=== PATIENT | male | born 1995 | race Caucasian/White ===

== ENCOUNTER 2020-07-09 06:08 | Emergency (ER) | payer BC, SELFPAY ==
--- NOTE | ~2020-07-09 | US_ITS ---
EXAMINATION: US venous doppler [facility] DATE: 07/09/2020 07:47 INDICATION: Lower limb paresthesias and purplish erythematous discoloration. TECHNIQUE: Grayscale ultrasound images without and with compression and Doppler ultrasound images of the bilateral lower extremity veins were obtained. COMPARISON: None. FINDINGS: The visualized portions of right common femoral vein, profunda (deep) femoral vein, femoral vein, pop liteal vein, posterior tibial veins, peroneal veins, gastrocnemius vein and greater saphenous vein ou tflow are patent. The visualized portions of left common femoral vein, profunda femoral vein, femoral vein, popliteal v ein, posterior tibial veins, peroneal veins, gastrocnemius vein and greater saphenous vein outflow ar e patent. IMPRESSION: 1. No deep venous thrombosis in either lower limb. Reviewed, dictated and finalized at location A.
--- NOTE | ~2020-07-09 | US_ITS ---
EXAMINATION: US arterial ankle brachial ind DATE: 07/09/2020 07:47 INDICATION: Paresthesias with numbness and tingling to the bilateral lower limbs as well as purplish erythematous discoloration. TECHNIQUE: Segmental pressures and plethysmographic and Doppler waveforms of the brachial and lower e xtremity arteries were obtained. COMPARISON: None. FINDINGS: Right and left brachial artery pressures of 120 mm Hg and 135 mm Hg, respectively, are concordant (no rmal difference <= 30 mmHg). The right ankle-brachial index (FAVIAN) is 1.19 (normal >= 0.9-1.0). The right great toe-brachial index (TBI) is 0.91 (normal >= 0.65). Arterial Doppler waveforms are triphasic at the right posterior tibia l and biphasic at the right dorsalis pedis arteries, both with brisk systolic upstrokes. The left FAVIAN is 1.24. The left TBI is 1.02. Arterial Doppler waveforms are triphasic with brisk systo lic upstrokes at both the left posterior tibial and dorsalis pedis arteries. IMPRESSION: 1. No significant arterial occlusive disease to either lower limb with normal bilateral ABIs and TBIs . Reviewed, dictated and finalized at location A. IMPRESSION: 1. No significant arterial occlusive disease to either lower limb with normal b ilateral ABIs and TBIs.
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
[2020-07-09 06:14] VITALS: BP 157/96; PULSE 78; RESP 20; TEMP 36.9; O2SAT 100
--- NOTE | 2020-07-09 06:33 | PC.NURSE ---
pedal pulses present in bilateral feet.
[2020-07-09 06:40] LABS: Basophils Percent Auto 0.5 % (0.2-1.2); Eosinophils Absolute Auto 0.1 K/mm3 (0-0.3); Eosinophils Percent Auto 1.5 % (0-4.4); Hematocrit 49.6 % (42.0-52.0); Hemoglobin 17.6 g/dL (14.0-18.0); Immature Granulocyte Absolute 0.02 K/mm3 (0.00-0.031); Immature Granulocyte Percent A 0.2 % (0-0.5); Lymphocytes Absolute Auto 3.41 K/mm3 (0.9-3.2); Mean Corpuscular HGB Conc 35.5 g/dl (32-36); Mean Corpuscular Hemoglobin 31.4 pg (26-34); Mean Corpuscular Volume 88.6 fl (80-100); Mean Platelet Volume 10.4 fl (7.4-10.4); Monocytes Absolute Auto 0.6 K/mm3 (0.1-0.6); Monocytes Percent Auto 6.7 % (2.6-8.5); Neutrophils Absolute Auto 4.4 K/mm3 (1.3-6.7); Neutrophils Percent Auto 51.1 % (45.5-73.1); Platelet Count Result 223 k/mm3 (150-375); White Blood Count 8.5 K/mm3 (4.5-10.0)
[2020-07-09 06:47] LABS: Anion Gap 11 mmol/L (8-16); Blood Urea Nitrogen 18 mg/dL (9-20); Calcium 10.3 mg/dL (8.4-10.2); Carbon Dioxide 28 mmol/L (22-30); Chloride 101 mmol/L (98-107); Estimated CRCL calculation 142 ml/min; Estimated Glomerular Filt Rate > 60; Glucose 126 mg/dL (75-110); Potassium 3.6 mmol/L (3.4-5.0); Sodium 140 mmol/L (137-145)
[2020-07-09 06:57] LABS: INR 0.9; Partial Thromboplastin Time 26.5 SECONDS (22.3-36.8); Prothrombin Time 12.4 Seconds (11.1-14.7)
--- NOTE | 2020-07-09 07:10 | PC.NURSE ---
Pt off floor to imaging via cart
--- NOTE | 2020-07-09 07:45 | PC.NURSE ---
Pt sitting up on cart, states he woke up with bilat numbness and tingling to both legs , denies trauma, states he works long hours on his feet. Both ankles have varicose-vein appearing martell, no open wounds. Currently denies pain
[2020-07-09 08:12] VITALS: BP 133/80; PULSE 105; RESP 17; O2SAT 100
== END 2020-07-09 08:26 | disposition home or self-care (01) ==
PROVIDERS: Emergency Provider Emergency Medicine
DX: R20.2 Paresthesia of skin (principal); F17.210 Nicotine dependence, cigarettes, uncomplicated
CPT/HCPCS: 36415; 80048; 85025; 85610; 85730; 93922; 93970; 99284

== ENCOUNTER 2020-07-17 11:56 | Emergency (ER) | payer BC, SELFPAY ==
[2020-07-17 12:15] VITALS: BP 108/78; PULSE 106; RESP 17; TEMP 36.4; O2SAT 100
--- NOTE | 2020-07-17 13:40 | ED.GENADULT ---
HPI - General Adult General Chief complaint: Skin/Abscess/Foreign Body Stated complaint: my skin is turning colors Time Seen by Provider: 07/17/20 12:47 Source: patient and RN notes reviewed Mode of arrival: ambulatory Limitations: no limitations History of Present Illness HPI narrative: Patient is a 24-year-old male who presents to emergency department for evaluation of multiple complaints patient notes that he has had longstanding anxiety typically takes his grandmothers Xanax and also obtains it from off the streets has a history of IV fentanyl abuse which she has quit doing now uses IV methamphetamine has not used in over a week patient does not have a primary care patient notes that he has discoloration of various places on his skin gets chest tightness and butterflies in his stomach denies vomiting diarrhea URI symptoms notes that the symptoms have been present off and on for years Related Data Allergies Allergy/AdvReac Type Severity Reaction Status Date / Time No Known Allergies Allergy Verified 07/17/20 12:21 Review of Systems Review of Systems: All systems reviewed & are unremarkable except as noted in HPI and below PMFSH Past Medical History Medical History (Updated 07/17/20 @ 13:43 by Sreedhar Mayorga PA-C) Anxiety Social History Social History (Updated 07/17/20 @ 13:41 by Sreedhar Mayorga PA-C) Smoking status: Current every day smoker Tobacco type: cigarettes and e-cigarettes/vaping Alcohol intake: current Substance use: current Substance use type: marijuana, amphetamines and IV drugs Gender identity (if verbalized by the patient): Male Exam Narrative: Exam Narrative: GENERAL: Well-appearing, well-nourished, and in no acute distress. HEAD: Normocephalic, atraumatic. EYES: PERRLA and EOMI. ENT: Nares clear, no rhinorrhea or epistaxis. Mucous membranes moist. Oropharynx without tonsillar hypertrophy exudate or other lesions. NECK: Supple. No adenopathy or masses. No carotid bruits or JVD CHEST: Clear to auscultation. No respiratory distress. No wheezes rales or rhonchi HEART: Regular rate and rhythm. No murmur heard. Normal peripheral pulses. ABDOMEN: Soft, nontender, nondistended EXTREMITIES: Normal range of motion. No edema. SKIN: Warm, dry, no rash. No identifiable rashes wounds or sores NEURO: No focal deficits. Alert and oriented x3. Cranial nerves II through XII grossly intact PSYCH: Normal mood and affect. Course Course Emergency Course: Patient in the room evaluated hemodynamically stable afebrile nontoxic-appearing given resources for follow-up with primary care patient agrees with this plan ABCs and vital signs intact and stable Vital Signs Vital signs: Vital Signs Temperature 97.6 F 07/17/20 12:15 Pulse Rate 106 H 07/17/20 12:15 Respiratory Rate 17 07/17/20 12:15 Blood Pressure 108/78 07/17/20 12:15 Pulse Oximetry 100 07/17/20 12:15 Temperature 97.6 F 07/17/20 12:15 Pulse Rate 106 H 07/17/20 12:15 Respiratory Rate 17 07/17/20 12:15 Blood Pressure 108/78 07/17/20 12:15 Pulse Oximetry 100 07/17/20 12:15 Medical Decision Making MDM Narrative Medical decision making narrative: Patients injury or pain is consistent with musculoskeletal etiology. No signs of neurological or vascular compromise on exam. Compartments and tisues are soft without signs of compartment syndrome. Pain is felt appropriate for further evaluation on an outpatient basis. Vital Signs Vital Signs: Vital Signs Temperature 97.6 F 07/17/20 12:15 Pulse Rate 106 H 07/17/20 12:15 Respiratory Rate 17 07/17/20 12:15 Blood Pressure 108/78 07/17/20 12:15 Pulse Oximetry 100 07/17/20 12:15 Temperature 97.6 F 07/17/20 12:15 Pulse Rate 106 H 07/17/20 12:15 Respiratory Rate 17 07/17/20 12:15 Blood Pressure 108/78 07/17/20 12:15 Pulse Oximetry 100 07/17/20 12:15 Discharge Plan Discharge Clinical Impression: Anxiety Patient Dispos
== END 2020-07-17 13:58 | disposition home or self-care (01) ==
PROVIDERS: Emergency Provider Emergency Medicine; PCP Emergency Medicine
DX: F41.9 Anxiety disorder, unspecified (principal); F17.200 Nicotine dependence, unspecified, uncomplicated
CPT/HCPCS: 99281

== ENCOUNTER 2021-04-17 21:38 | Emergency (ER) | payer BC, SELFPAY ==
--- NOTE | ~2021-04-17 | XR_ITS ---
EXAMINATION: XR chest 1V portable EXAM DATE: 04/17/2021 22:05 INDICATION: Respiratory bowel leak, shallow breathing. TECHNIQUE: Portable AP frontal chest x-ray was obtained. Comparison is made to prior examination from 10/29/2018. FINDINGS: The lungs are clear. There are no pleural effusions. The cardiomediastinal silhouette is within normal limits. There is no pneumothorax suspected. The bones and soft tissues are unremarkab le. IMPRESSION: Normal chest x-ray exam. Reviewed, dictated and finalized at location G. [employer] IMPRESSION: Normal chest x-ray exam.
[2021-04-17 21:39] VITALS: BP 168/144; PULSE 141; RESP 22; TEMP 36.7; O2SAT 100
--- NOTE | 2021-04-17 21:55 | ECG_ITS ---
Measurements Intervals [place] Rate: 113 P: 70 WA: 191 QRS: 58 QRSD: 83 T: 43 QT: 335 QTc: 460 Interpretive Statements SINUS TACHYCARDIA POSSIBLE LEFT ATRIAL ENLARGEMENT ABNORMAL ECG Electronically Signed On 04-18-2021 7:56:06 [employer] by Kevin Crowell D.O.
[2021-04-17] MEDS: SODIUM CHLORIDE 0.9% IV 1,000 ML 999 ML IV CONT ×2 (22:15→23:48)
[2021-04-17 22:34] LABS: Basophils Percent Auto 0.2 % (0.2-1.2); Eosinophils Percent Auto 0.1 % (0-4.4); Hematocrit 43.4 % (42.0-52.0); Hemoglobin 14.8 g/dL (14.0-18.0); Immature Granulocyte Absolute 0.09 K/mm3 (0.00-0.031); Immature Granulocyte Percent A 0.7 % (0-0.5); Lymphocytes Absolute Auto 0.89 K/mm3 (0.9-3.2); Lymphocytes Percent Auto 7.4 % (18.3-44.2); Mean Corpuscular HGB Conc 34.1 g/dl (32-36); Mean Corpuscular Hemoglobin 31.6 pg (26-34); Mean Corpuscular Volume 92.5 fl (80-100); Mean Platelet Volume 10.7 fl (7.4-10.4); Monocytes Absolute Auto 0.5 K/mm3 (0.1-0.6); Monocytes Percent Auto 3.8 % (2.6-8.5); Neutrophils Absolute Auto 10.5 K/mm3 (1.3-6.7); Neutrophils Percent Auto 87.8 % (45.5-73.1); Platelet Count Result 224 k/mm3 (150-375); Red Blood Count 4.69 M/mm3 (4.6-6.20)
[2021-04-17 22:47] LABS: Acetaminophen < 10 ug/mL (10-30); Salicylate < 1.0 mg/dL (2-20)
[2021-04-17] MEDS: PROMETHAZINE HCL 25 MG/ML AMPUL 12.5 MG IV PUSH (22:56)
[2021-04-17 23:04] VITALS: RESP 12
[2021-04-17 23:13] LABS: Add Urine Microscopic? YES; Appearance Urine Clear (Clear); Bilirubin Urine Negative (Negative); Blood Urine Negative (Negative); Color Urine Yellow (Yellow); Glucose Urine UA 2+ mg/dL (Negative); Ketones Urine Trace mg/dL (Negative); Leukocyte Esterase Ur Negative LEU/UL (Negative); Mucus Urine Rare /lpf; Nitrate Urine Negative (Negative); Protein Urine 1+ mg/dL (Negative); RBC Urine 51-75 /hpf (0-2); Specific Grav Ur 1.017 (1.001-1.035); Squamous Epithelial Cell Urine Rare /hpf (Few); WBC Urine 0-3 /hpf
[2021-04-17 23:15] LABS: Alanine Aminotransferase 49 U/L (4-50); Albumin Level 4.3 g/dL (3.5-5.1); Alkaline Phosphatase 92 U/L (38-126); Anion Gap 13 mmol/L (8-16); Aspartate Amino Transferase 48 U/L (17-59); Bilirubin,Total 0.4 mg/dL (0.2-1.3); Blood Urea Nitrogen 11 mg/dL (9-20); Calcium 8.9 mg/dL (8.4-10.2); Carbon Dioxide 28 mmol/L (22-30); Chloride 98 mmol/L (98-107); Estimated CRCL calculation 93 ml/min; Estimated Glomerular Filt Rate > 60; Glucose 226 mg/dL (65-110); Potassium 5.4 mmol/L (3.4-5.0); Sodium 139 mmol/L (137-145)
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
[2021-04-17 23:18] LABS: Thyroid Stimulating Hormone 0.995 uIU/mL (0.465-4.680)
[2021-04-17 23:30] VITALS: BP 128/103; PULSE 99; RESP 14; O2SAT 99
[2021-04-17 23:42] LABS: Amphetamine Screen Urine Negative (Negative); Barbiturate Screen Urine Negative (Negative); Benzodiazepines Screen Urine Negative (Negative); Cannabinoid Screen Urine Positive (Negative); Cocaine Screen Urine Negative (Negative); Methadone Screen Urine Negative (Negative); Opiate Screen Urine Negative (Negative); Phencyclidine Screen Urine Negative (Negative)
[2021-04-18 01:12] VITALS: BP 121/84; PULSE 92; PULSE 98; RESP 14; TEMP 36.6; TEMP 36.8; O2SAT 98; O2SAT 99
== END 2021-04-18 01:13 | disposition home or self-care (01) ==
PROVIDERS: Emergency Provider Emergency Medicine; PCP Emergency Medicine
DX: T40.411A Poisoning by fentanyl or fentanyl analogs, accidental (unintentional), initial encounter (principal); R00.0 Tachycardia, unspecified; F41.9 Anxiety disorder, unspecified; F90.9 Attention-deficit hyperactivity disorder, unspecified type
CPT/HCPCS: 36415; 71045; 80053; 80307; 81001; 84443; 85025; 93005; 96361; 96374; 99284; J2550; J7030

== ENCOUNTER 2021-08-14 16:50 | Observation (INO) | payer BC, SELFPAY ==
--- NOTE | ~2021-08-14 | CT_ITS ---
EXAMINATION: CT diagnostic chest wo con DATE: 08/15/2021 10:10 INDICATION: IVDU/Splenomegaly TECHNIQUE: Computed tomography (CT) of the chest was performed without intravenous contrast. Addition al 3D reconstructions utilizing coronal maximum intensity projection (MIP) were performed. Automated exposure control and iterative reconstruction technique were employed. The dose-length product was 16 0.50 mGy-cm. COMPARISON: None FINDINGS: Suture line and mild associated scarring at the apical segment of the left upper lobe. Minimal depend ent atelectasis in the bilateral lower lobes. No pneumonia, pulmonary edema, pulmonary nodules or ple ural effusion. Heart size is normal. No pericardial effusion. Thoracic aorta is normal in caliber. No pathologically enlarged thoracic lymphadenopathy. Spleen is only partially visualized but does appea r mildly enlarged measuring up to 13.2 cm in maximal AP length. Bones are unremarkable. IMPRESSION: 1. No acute cardiopulmonary disease. 2. Nonspecific mild splenomegaly. Reviewed, dictated and finalized at location A.
--- NOTE | ~2021-08-14 | CT_ITS ---
EXAMINATION: CT abdomen pelvis wo con DATE: 08/14/2021 20:01 INDICATION: Abdominal pain, hematuria TECHNIQUE: Computed tomography (CT) of the abdomen and pelvis was performed without intravenous contr ast. Automated exposure control and iterative reconstruction technique were employed. Exam dose: 285 .52 mGy-cm total exam DLP. COMPARISON: 10/29/2018 CT abdomen pelvis FINDINGS: The lung bases are clear. Normal heart size. No pericardial or pleural effusion. The spleen measures approximately 15 cm vertical dimension, consistent with splenomegaly. No hepatic, splenic, pancreatic, adrenal or renal space-occupying mass lesion is evident on this limited noncont rast examination. The gallbladder is present. No bile duct or pancreatic duct dilatation. Normal caliber of the abdominal aorta. No intraperitoneal or retroperitoneal or pelvic mass lesion or adenopathy or ascites is noted. The urinary bladder is evacuated. No evidence of appendicitis. No bowel obstruction is noted. There is a prominent amount of fecal mate rial within the colon. No intraperitoneal free air. Included skeletal structures are unremarkable. IMPRESSION: Splenomegaly Reviewed, dictated and finalized at Location A. Reviewed, dictated and finalized at location A. IMPRESSION: Splenomegaly
[2021-08-14 17:02] VITALS: BP 119/67; PULSE 85; RESP 18; TEMP 37.2; O2SAT 100
--- NOTE | 2021-08-14 18:12 | ED.GENADULT ---
HPI - General Adult General Chief complaint: Urogenital-Male Stated complaint: HEMATURIA X3D, WEIGHT LOSS Time Seen by Provider: 08/14/21 18:04 History of Present Illness HPI narrative: 22-year-old male presents emergency room states that over the last several days his urine has been extremely dark. He states he thought that it would clear out but is not clearing up. He also has some dysuria as well as urinary frequency. He has had an STD with chlamydia in the past but did not having any discharge from his penis at this time. He also states that he has had no appetite and has lost about 30 pounds over the last several weeks. Denies any chills or fevers. No cough or congestion. Only medical history is had his he had surgery on his lung secondary to spontaneous pneumothorax. Related Data Home Medications Medication Instructions Recorded Confirmed No Home Medications 08/14/21 08/14/21 Allergies Allergy/AdvReac Type Severity Reaction Status Date / Time No Known Allergies Allergy Verified 08/14/21 19:30 Review of Systems Review of Systems: CONSTITUTIONAL: Denies fever, chills, or sweats. Weight loss EYES: Denies visual changes, redness, or discharge. ENT: Denies rhinorrhea, congestion, sore throat, or otalgia. CARDIOVASCULAR: Denies chest pain, palpitations, or edema. RESPIRATORY: Denies cough or dyspnea. GASTROINTESTINAL: Denies abdominal pain, nausea, vomiting, or diarrhea. GENITOURINARY: Having dark urine with dysuria and urinary frequency SKIN: Denies rash or itching. MUSCULOSKELETAL: Denies back pain, joint pain, or myalgia. NEUROLOGIC: Denies headache, numbness, or weakness. PSYCHIATRIC: Denies anxiety or depression. PMFSH Past Medical History Medical History (Updated 08/14/21 @ 21:11 by Dave Velasquez DO) ADHD Anxiety Surgical History Surgical History (Updated 08/14/21 @ 18:14 by Dave Velasquez DO) History of lung surgery Social History Social History Smoking status: Current every day smoker Tobacco type: cigarettes and e-cigarettes/vaping Alcohol intake: current Substance use: current Substance use type: marijuana, amphetamines and IV drugs Gender identity (if verbalized by the patient): Male Exam Narrative: APPEARANCE: Well appearing, no pain or distress, well-nourished. Head normocephalic and atraumatic. EYES: PERRLA/EOMI, conjunctivae very clear. NOSE: Normal with no drainage EARS:TMS clear Lili Hall, with good light reflex. THROAT: Pharynx clear, no exudate. NECK: Supple. No adenopathy, no masses. RESPIRATORY: Airway patent, respirations nonlabored. Clear to auscultation bilaterally, no rales, rhonchi, wheezing. CARDIOVASCULAR: Regular rate and rhythm without murmurs, rubs, or gallops. ABDOMINAL: Suprapubic tenderness to palpation. No rebound rigidity guarding. Some tenderness noted to the left upper and mid quadrants Musculoskeletal: Moves all extremities. Strength/ROM intact, No edema, No calf tenderness. NEURO: Alert. Cranial nerves II through XII intact. Normal gait. Good coordination. Nonfocal examination. SKIN:: Warm, dry. Normal Color PSYCHIATRIC: Normal affect/mood, normal interaction Course Vital Signs Vital signs: Vital Signs Temperature 98.9 F 08/14/21 17:02 Pulse Rate 85 08/14/21 17:02 Respiratory Rate 18 08/14/21 17:02 Blood Pressure 119/67 08/14/21 17:02 Pulse Oximetry 100 08/14/21 17:02 Oxygen Delivery Room Air 08/14/21 17:02 Temperature 98.9 F 08/14/21 17:02 Pulse Rate 80 08/14/21 19:29 Respiratory Rate 16 08/14/21 19:29 Blood Pressure 108/79 08/14/21 19:29 Pulse Oximetry 99 08/14/21 19:29 Oxygen Delivery Room Air 08/14/21 17:02 Medical Decision Making [facility] Narrative Medical decision making narrative: There is no signs of a urinary tract infection but the patient is spilling bilirubin in his urine. However on his chemistry panel his liver e
[2021-08-14 18:51] LABS: Basophils Percent Auto 0.6 % (0.2-1.2); Eosinophils Absolute Auto 0.1 K/mm3 (0-0.3); Hematocrit 37.7 % (42.0-52.0); Hemoglobin 12.5 g/dL (14.0-18.0); Immature Granulocyte Absolute 0.02 K/mm3 (0.00-0.031); Immature Granulocyte Percent A 0.3 % (0-0.5); Lymphocytes Absolute Auto 1.98 K/mm3 (0.9-3.2); Lymphocytes Percent Auto 30.4 % (18.3-44.2); Mean Corpuscular HGB Conc 33.2 g/dl (32-36); Mean Corpuscular Hemoglobin 29.6 pg (26-34); Mean Corpuscular Volume 89.3 fl (80-100); Mean Platelet Volume 10.1 fl (7.4-10.4); Monocytes Absolute Auto 0.6 K/mm3 (0.1-0.6); Monocytes Percent Auto 9.4 % (2.6-8.5); Neutrophils Absolute Auto 3.7 K/mm3 (1.3-6.7); Neutrophils Percent Auto 57.3 % (45.5-73.1); Platelet Count Result 229 k/mm3 (150-375); Red Blood Count 4.22 M/mm3 (4.6-6.20); Red Cell Distribution Width 11.9 % (11.5-14.5); White Blood Count 6.5 K/mm3 (4.5-10.0)
[2021-08-14 19:01] LABS: Alanine Aminotransferase 21 U/L (6-50); Albumin Level 4.2 g/dL (3.5-5.1); Alkaline Phosphatase 95 U/L (38-126); Anion Gap 9 mmol/L (8-16); Aspartate Amino Transferase 19 U/L (17-59); Bilirubin,Total 0.3 mg/dL (0.2-1.3); Blood Urea Nitrogen 17 mg/dL (9-20); Calcium 8.8 mg/dL (8.4-10.2); Carbon Dioxide 28 mmol/L (22-30); Chloride 105 mmol/L (98-107); Estimated CRCL calculation 142 ml/min; Estimated Glomerular Filt Rate > 60; Glucose 106 mg/dL (65-110); Potassium 4.1 mmol/L (3.4-5.0); Sodium 142 mmol/L (137-145)
[2021-08-14 19:29] VITALS: BP 108/79; PULSE 80; RESP 16; O2SAT 99
[2021-08-14 19:36] LABS: Appearance Urine Clear (Clear); Bilirubin Urine 2+ (Negative); Blood Urine Negative (Negative); Color Urine Yellow (Yellow); Glucose Urine UA Negative (Negative); Ketones Urine Negative (Negative); Leukocyte Esterase Ur Negative LEU/UL (Negative); Nitrate Urine Negative (Negative); Protein Urine Trace mg/dL (Negative); Specific Grav Ur >= 1.030 (1.001-1.035)
[2021-08-14 19:49] LABS: Add Urine Microscopic? YES; Calcium Oxalate Crystals Urine Present /hpf; Mucus Urine Heavy /lpf; Squamous Epithelial Cell Urine Rare /hpf (Few); WBC Urine 0-3 /hpf
--- NOTE | 2021-08-14 21:03 | PM.IMHP ---
H&P: HPI History of Present Illness Date/Time: 08/14/21 21:03 Chief Complaint: Urine discoloration Narrative: This is a 25-year-old male with past medical history significant for IVDU, amphetamine, fentanyl, tobacco dependence, 1 pack a day, alcohol dependence patient used to drink up to a pt a day of vocal but has been sober. Patient presents to the emergency room due to dark discoloration and weight loss of roughly 30 lb in the last 6 months or so unintentional. Patient did IV drugs 2 days prior to presentation to emergency room. Patient denies any nausea, vomiting, cough, sputum production, diarrhea, calves pain, no shortness of breath, no chest pain, no palpitations. Preliminary workup was significant for CT of abdomen and pelvis with enlarged spleen. Patient has been admitted for further evaluation management and treatment. Review of Systems Review of Systems: Urine discoloration, weight loss. Constitutional: Constitutional: Denies chills, Denies fever(s), Denies malaise, Denies night sweats and Reports weight loss Eyes: Eyes: Denies change in vision ENT: Denies dysphagia, Denies vertigo, Denies dizziness, Denies odynophagia and Denies disequilibrium Cardiovascular: Cardiovascular: Denies chest pain, Denies syncope, Denies lightheadedness, Denies radiating jaw, neck or arm pain, Denies palpitations, Denies dyspnea on exertion and Denies paroxysmal nocturnal dyspnea Respiratory: Respiratory: Denies chest congestion, Denies cough, Denies excessive phlegm production, Denies dyspnea and Denies wheezing Gastrointestinal: Gastrointestinal: Denies abdominal pain, Denies dyspepsia, Denies heartburn, Denies diarrhea, Denies nausea and Denies vomiting Genitourinary: Genitourinary: Denies genital lesions, Reports dysuria, Denies flank pain and Reports other (Dark discoloration of urine) Musculoskeletal: Musculoskeletal: Denies back pain, Denies myalgias, Denies arthralgias and Denies joint swelling Integumentary/Breasts: Skin/Breast: Denies rash Neurologic: Denies focal weakness and Denies Sensory deficit (Neuro) Psychiatric: Psychiatric: Reports no additional psychiatric complaints and Reports as per HPI Endocrine: Endocrine: Denies cold intolerance, Denies fatigue, Denies flushing, Denies heat intolerance, Denies polyphagia, Denies polydipsia and Denies palpitations Hematologic/Lymphatic: Hematologic/Lymphatic: Reports no additional hematologic/lymphatic complaints and Reports as per HPI Allergic/Immunologic: Allergic/Immunologic: Reports no additional allergic/immunologic complaints [facility] Past Medical History Medical History (Updated 08/15/21 @ 15:10 by Richard Claudio MD) ADHD Anxiety Surgical History Surgical History (Updated 08/15/21 @ 15:10 by Richard Claudio MD) History of lung surgery Family History Family History (Updated 08/14/21 @ 23:27 by Angelica Bowden RN) Grandparent Diabetes mellitus Blind Cerebrovascular accident Hx of heart surgery Father History of lung surgery Social History Social History Smoking packs per day: 0.5 Smoking cigarettes per day: 10.0 Years smoked: 10 Smoking pack-years: 5.00 Smoking status: Current every day smoker Tobacco type: cigarettes Alcohol intake: former Substance use: former Substance use type: marijuana Other substance usage details: pt states he dabbles in other stuff Gender identity (if verbalized by the patient): Male Spiritual care concerns: No Meds Home Medications and Allergies Home Medications Medication Instructions Recorded Confirmed Type No Home Medications 08/14/21 08/14/21 History Allergies Allergy/AdvReac Type Severity Reaction Status Date / Time No Known Allergies Allergy Verified 08/14/21 19:30 Vital Signs Vital Signs - 24 hr 08/14/21 17:02 08/14/21 19:29 Temperature 98.9 F Pulse Rate 85 80 Respiratory Rate 18 16 Blood Pr
--- NOTE | 2021-08-14 23:24 | ADMGEN ---
This patient, Philip Ramos, was admitted to 3 [facility] Surg Room 328-01. Patient/family oriented to hospital policies and general routines including ID bracelet, bed and alarms, visiting hours, pain management, procedures, bathroom and other care routines, personal items, smoking policy, room service/diet, and visiting hours. Information on how to activate the Rapid Response Team has been discussed. Patient/Family are encouraged to report perceived risks to care and to ask questions if they do not understand what they are told or what they should do.
[2021-08-14 23:25] VITALS: BP 111/69; PULSE 67; RESP 16; TEMP 36.3; O2SAT 99
--- NOTE | 2021-08-15 | ECHO_ITS ---
Patient Info Name: Philip Ramos Age: 25 years : 1995 Gender: Male Ht: 72 in Wt: 156 lbs BSA: 1.89 m2 HR: 65 bpm BP: 117 / 66 mmHg Technical Quality: Good Exam Date: 08/15/2021 1:04 PM Exam Location: [facility] Pulmonary Exam Room: [facility] Patient Status: Outpatient Admit Date: 08/14/2021 Staff Ordering Physician: Andrzej Malcolm MD Charging Machine Operator: Kristie Tavarez RDCS Attending Provider: Andrzej Malcolm MD Referring Physician: Gold REVELES; Exam Type: CA echo doppler color flow Study Info Indications - IVDU Complete two-dimensional, color flow and Doppler transthoracic echocardiogram is performed. Summary 1. Complete two-dimensional, color flow and Doppler transthoracic echocardiogram is performed. 2. Left ventricular chamber dimension is normal. 3. Left ventricular systolic function is normal, estimated at 60-65%. 4. The left ventricular diastolic function is normal. 5. E/e' 5 is not elevated. 6. Left atrial chamber dimension is mildly enlarged. 7. Right atrial chamber dimension is mildly enlarged. 8. There is trace mitral valve regurgitation. 9. There is trace tricuspid valve regurgitation. 10. No pulmonary hypertension, estimated pulmonary arterial systolic pressure is 21 mmHg. Left Ventricle E/e' 5 is not elevated. Left ventricular chamber dimension is normal. Left ventricular systolic function is normal, estimated at 60-65%. The left ventricular diastolic function is normal. Right Ventricle Right ventricular chamber dimension is normal. Right ventricular systolic function is normal. Left Atria Left atrial chamber dimension is mildly enlarged. Right Atria Right atrial chamber dimension is mildly enlarged. Aortic Valve The aortic valve is trileaflet. There is no aortic valve stenosis. There is no aortic valve regurgitation. No aortic valve vegetation visualized. Pulmonic Valve There is no pulmonic regurgitation. Mitral Valve There is no mitral valve stenosis. There is trace mitral valve regurgitation. No mitral valve vegetation visualized. Tricuspid Valve There is trace tricuspid valve regurgitation. No pulmonary hypertension, estimated pulmonary arterial systolic pressure is 21 mmHg. No tricuspid valve vegetation visualized. Pericardium/Pleural There is no pericardial effusion. Inferior Vena Cava Normal inferior vena cava with >50% collapse upon inspiration consistent with normal right atrial pressure, 5 mmHg. Aorta The aortic root size at the sinus of Valsalva is normal. Left Ventricular Outflow Tract Name Value Normal LVOT 2D LVOT Diameter 2.1 cm LVOT Doppler LVOT Peak Gradient 3 mmHg LVOT Mean Gradient 2 mmHg LVOT VTI 18 cm LVOT VTI/AV VTI Ratio 0.8 LVOT Stroke Volume 63 ml LVOT CO 13.5 l/min LVOT CI 7.2 l/min/m2 Pulmonic Valve Name
[2021-08-15 05:29] VITALS: BP 117/66; PULSE 78; RESP 16; TEMP 36.1; O2SAT 100
[2021-08-15 06:08] LABS: Basophils Percent Auto 0.6 % (0.2-1.2); Eosinophils Absolute Auto 0.2 K/mm3 (0-0.3); Eosinophils Percent Auto 4.2 % (0-4.4); Hematocrit 33.3 % (42.0-52.0); Hemoglobin 11.2 g/dL (14.0-18.0); Immature Granulocyte Absolute 0.01 K/mm3 (0.00-0.031); Immature Granulocyte Percent A 0.2 % (0-0.5); Lymphocytes Absolute Auto 2.27 K/mm3 (0.9-3.2); Lymphocytes Percent Auto 45.3 % (18.3-44.2); Mean Corpuscular HGB Conc 33.6 g/dl (32-36); Mean Corpuscular Volume 89.3 fl (80-100); Mean Platelet Volume 10.1 fl (7.4-10.4); Monocytes Absolute Auto 0.5 K/mm3 (0.1-0.6); Neutrophils Percent Auto 40.7 % (45.5-73.1); Platelet Count Result 213 k/mm3 (150-375); Red Blood Count 3.73 M/mm3 (4.6-6.20); Red Cell Distribution Width 11.9 % (11.5-14.5)
[2021-08-15 06:17] VITALS: BMI 21.0
[2021-08-15 06:21] LABS: Anion Gap 6 mmol/L (8-16); Blood Urea Nitrogen 16 mg/dL (9-20); Calcium 8.1 mg/dL (8.4-10.2); Carbon Dioxide 30 mmol/L (22-30); Chloride 105 mmol/L (98-107); Estimated CRCL calculation 145 ml/min; Estimated Glomerular Filt Rate > 60; Glucose 105 mg/dL (65-110); Magnesium 2.1 mg/dL (1.6-2.3); Phosphorus 4.4 mg/dL (2.5-4.5); Potassium 3.5 mmol/L (3.4-5.0); Sodium 141 mmol/L (137-145)
[2021-08-15 06:47] LABS: HIV 1/2 Ab P24 Ag Result Negative (Negative)
[2021-08-15 07:07] LABS: Hepatitis B Surface Antigen Negative (Negative)
[2021-08-15 07:13] LABS: HAV RESULT Negative (Negative); Hepatitis B Core IgM Result Negative (Negative)
[2021-08-15] MEDS: THIAMINE HCL INJ 100 MG, FOLIC ACID INJ 1 MG, MULTIVITAMINS-12 INJ VIAL 1 5 ML, MULTIVI... IV CONT (07:28)
[2021-08-15 07:36] LABS: Hepatitis C Virus Antibody Reactive (Negative)
[2021-08-15 07:58] LABS: Anisocytosis 1+ (NORMAL); Hypochromasia 2+ (NORMAL); Platelet Estimate Adequate (Adequate)
[2021-08-15 10:03] LABS: Monoscreen Negative (Negative); Negative Monotest Control Negative (Negative); Positive Monotest Control Positive (Positive)
--- NOTE | 2021-08-15 11:44 | PM.IMPN ---
Progress Note: A&P Assessment and Plan (1) IVDU (intravenous drug user): Code(s): F19.90 - Other psychoactive substance use, unspecified, uncomplicated Status: Acute Assessment and Plan: Cessation counseling given to the patient, case management working with referrals and resources of the outpatient basis (2) Splenomegaly: Code(s): R16.1 - Splenomegaly, not elsewhere classified Status: Acute Assessment and Plan: Mild splenomegaly, continue to monitor (3) Tobacco dependence: Code(s): F17.200 - Nicotine dependence, unspecified, uncomplicated Status: Acute Assessment and Plan: Smoking cessation counseling given for 3 minutes, will add nicotine patch daily (4) Amphetamine abuse: Code(s): F15.10 - Other stimulant abuse, uncomplicated Status: Acute Assessment and Plan: Two/to above (5) Fentanyl dependence: Code(s): F11.20 - Opioid dependence, uncomplicated Status: Acute Assessment and Plan: 2/2 above Case management working with the patient for additional resources (6) Weight loss, abnormal: Code(s): R63.4 - Abnormal weight loss Status: Acute Assessment and Plan: Patient has had an abnormal weight loss, greater than 30 lb within the last 2 weeks. (7) Nonspecific reactive hepatitis: Code(s): K75.2 - Nonspecific reactive hepatitis Status: Acute Assessment and Plan: Patient had a reactive hepatitis screen. Pending HCV RNA PCR Discussed findings with the patient Patient sources IV drug use and sharing needles at times. Subjective Date/time seen: 08/15/21 11:44 Interval history: Patient is alert and oriented x4. He is a 25-year-old male with a past history of spontaneous pneumothorax requiring surgical intervention other than that the patient has a minimal past medical history. Patient does endorse IV drug use, narcotic use and methamphetamine use. Patient also endorses marijuana use. Patient reports that he is homeless and has been homeless with approximately 2 weeks as required to live in [facility]. Case management currently working with the patient in order to find placement. Patient presents to the emergency department due to having extremely dark urine for the last several days, fatigue and extreme weight loss greater than 30 lb within the past 2 weeks. Patient also reports dysuria and urinary frequency. He has endorsed SCDs and chlamydia in the past however he denies any discharge from his penis. Patient denies any fever or chills. Denies any cough or congestion. Her recent sick contacts. While in the emergency department labs and imaging were obtained. Patient did have WBC 6.5, hemoglobin 12.5, hematocrit 37.7, platelet 229, sodium 142, potassium 4.1, BUN 17, creatinine 0.7 with GFR greater than 60. Normal LFTs any UA that revealed yellow and clear with 2+ bilirubin heavy mucus and calcium oxalates present. Negative nitrates and wbc's. Upon admission to the floor patient will have peripheral smears for further management evaluation and evaluate reasons for weight loss and consulted case management for additional resources Review of Systems Review of Systems: All systems reviewed & are unremarkable except as noted in HPI and below Exam Narrative: General: No acute distress. Mental Status: Awake, alert and oriented to person, place, and time with clear speech. Skin: Skin in warm, dry and intact without rashes or lesions. Head: Normocephalic and atraumatic. Eyes: Conjunctivae are clear without exudates or hemorrhage. Sclera is non-icteric. EOM are intact, PERRLA. Ears: The external ear and canal are non-tender and without swelling or discharge. Nose: Nasal mucosa is pink and moist. Septum midline. Nares patent bilaterally. Throat: Oral mucosa pink and moist with good dentition. Tongue midline. Neck: The neck supple without adenopathy. Trachea midline. No JVD. Cardiac: S1 an
[2021-08-15 13:41] VITALS: BMI 21.0
[2021-08-15 14:00] VITALS: BP 119/63; PULSE 62; RESP 18; TEMP 36.3; O2SAT 100
--- NOTE | 2021-08-15 15:05 | PDONCCN ---
HPI - Date of Consult Date/Time: 08/15/21 15:05 Requesting Physician: Andrzej Malcolm MD Primary Care Provider: Sunny Geller MD - Consult Narrative Reason for consult: Splenomegaly Narrative: Philip Ramos is a 25 year old male who came into the ER with complain of dark urine with some dysuria. He has lost 30 lb weight with poor appetite. He denies any fevers and chills. Denies any cough and sore throat. CT abdomen and pelvis was done due to abdominal pain and hematuria showed mild splenomegaly. Spleen measures 15 cm in size without any hepatic lesions. CT chest showed no acute cardiopulmonary process. Labs showed normal WBC count and platelet but mild normocytic anemia. Patient is sleeping comfortably and not able to give me much history. History was obtained with chart review. Review of Systems - Review of Systems All systems reviewed & are unremarkable except as noted in HPI and [facility] Medical History: Medical History (Last Reviewed 08/14/21 @ 18:13 by Dave Velasquez DO) ADHD Anxiety Surgical History: Surgical History (Last Updated 08/14/21 @ 18:14 by Dave Velasquez DO) History of lung surgery Family History: Family History (Last Updated 08/14/21 @ 23:27 by Angelica Bowden RN) Grandparent Diabetes mellitus Blind Cerebrovascular accident Hx of heart surgery Father History of lung surgery - Social History Social History: Social History (Last Reviewed 08/14/21 @ 18:13 by Dave Velasquez DO) Gender Identity: Gender identity (if verbalized by the patient): Male Alcohol Use: Alcohol intake: former Substance Use: Substance use: former Substance use type: marijuana Other substance usage details: pt states he dabbles in other stuff Others: Spiritual care concerns: No Smoking Status: Smoking status: Current every day smoker Tobacco type: cigarettes Smoking Pack-years: Smoking packs per day: 0.5 Smoking cigarettes per day: 10.0 Years smoked: 10 Smoking pack-years: 5.00 Meds Home Medications Medication Instructions Recorded Confirmed Type No Home Medications 08/14/21 08/14/21 History Allergies Allergy/AdvReac Type Severity Reaction Status Date / Time No Known Allergies Allergy Verified 08/14/21 19:30 Results - Labs CBC & Chem 7: 08/15/21 05:42 08/15/21 05:42 Labs: Short CBC 08/14/21 08/15/21 Range/Units 18:37 05:42 WBC 6.5 5.0 (4.5-10.0) K/mm3 Hgb 12.5 L 11.2 L (14.0-18.0) g/dL Hct 37.7 L 33.3 L (42.0-52.0) % Plt Count 229 213 (150-375) k/mm3 BMP 08/14/21 08/15/21 18:37 05:42 Sodium 142 141 Potassium 4.1 3.5 Chloride 105 105 Carbon Dioxide 28 30 BUN 17 16 Creatinine 0.70 0.70 Glucose 106 105 Calcium 8.8 8.1 L Liver Function 08/14/21 Range/Units 18:37 Total Bilirubin 0.3 (0.2-1.3) mg/dL AST 19 (17-59) U/L ALT 21 (6-50) U/L Alkaline Phosphatase 95 (38-126) U/L Albumin 4.2 (3.5-5.1) g/dL Urine 08/14/21 Range/Units 19:23 Urine Color Yellow (Yellow) Urine Appearance Clear (Clear) Urine pH 6.0 (5.0-9.0) Ur Specific [place] >= 1.030 (1.001-1.035) Urine Protein Trace (Negative) mg/dL Urine Glucose (UA) Negative (Negative) mg/dL Assessment and Plan - Additional Plan Mild splenomegaly. Patient is a 25-year-old young male came into the hospital with dysuria and hematuria along with some dark urine and abdominal pain. CT abdomen and pelvis showed mild splenomegaly with spleen size of 15 cm. There was no evidence of lymphadenopathy. There is no evidence of liver lesions. Labs showed normal WBC and platelet count with normocytic anemia. Lymphocyte percentage was slightly elevated. [place] screen negative. Differential diagnosis of mild splenomegaly include lymphoproliferative disorder, benign disorders like sarcoidosis, infections, autoimmune di
[2021-08-15 16:18] LABS: Iron 56 ug/dL (49-181)
[2021-08-15 16:21] LABS: Lactate Dehydrogenase 445 U/L (313-618)
[2021-08-15 16:36] LABS: Percent Iron Saturation 21 % (20-50)
[2021-08-15 17:35] LABS: Folic Acid 15.3 ng/mL (2.76->20)
[2021-08-15] MEDS: NICOTINE (*PBKC) 21 MG PATCH 1 PATCH TRANSDERM (21:10)
[2021-08-15 21:23] VITALS: BP 126/87; PULSE 67; RESP 16; TEMP 36.9; O2SAT 100
[2021-08-16 05:43] VITALS: BP 124/78; PULSE 54; RESP 18; TEMP 36.3; O2SAT 100
--- NOTE | 2021-08-16 06:48 | PM.DS ---
DS: Admitting Diagnosis Discharge Date 08/16/2021 Admitting Diagnosis Urine discoloration Mild Splenomegaly DS: Discharge Diagnosis Discharge Diagnosis (1) Splenomegaly: Code(s): R16.1 - Splenomegaly, not elsewhere classified Status: Acute Assessment and Plan: Admit to regular medical floor Will obtain CT of the chest high-resolution CT of abdomen and pelvis reviewed Monospot test Hepatitis panel HIV screening Blood cultures Peripheral smear Hematology-Oncology consult --workup negative, continue following heme Onc outpatient basis (2) IVDU (intravenous drug user): Code(s): F19.90 - Other psychoactive substance use, unspecified, uncomplicated Status: Acute Assessment and Plan: Will obtain echocardiogram Blood cultures in progress Will start empirically vancomycin and Zosyn Discontinue antibiotics as needed (3) Tobacco dependence: Code(s): F17.200 - Nicotine dependence, unspecified, uncomplicated Status: Acute Assessment and Plan: Nicotine patch as needed (4) Amphetamine abuse: Code(s): F15.10 - Other stimulant abuse, uncomplicated Status: Acute Assessment and Plan: Consult about substance of abuse cessation (5) Fentanyl dependence: Code(s): F11.20 - Opioid dependence, uncomplicated Status: Acute Assessment and Plan: Consult about substance abuse cessation DS: Summary Hospital Course Reason for hospitalization: Mild splenomegaly Weight loss Urine discoloration Hospital Course: ?25-year-old male with past medical history significant for IV drug use, amphetamine, fentanyl, tobacco dependence, 1 pack a day, alcohol dependence patient used to drink up to a pt a day of vocal but has been sober. Patient presented to [place] [facility] due to dark discoloration of urine and weight loss, patient reports a roughly 30 lb weight loss in the last 6 months unintentional. However he has been using amphetamines recently. Patient also reports IV drug use 2 days prior to presentation to the emergency department. He denies any active nausea, emesis, cough, sputum production, diarrhea, shortness of breath or chest pain. Upon further evaluation in the emergency department labs and imaging were obtained. Patient's WBC was 6.5, hemoglobin 12.5, hematocrit 37.7 and platelet of 229, sodium 142, potassium 4.1, chloride 105, BUN 17, creatinine 0.7 and glucose of 106. Normal LFTs and UA that appeared WNL. A CT of the abdomen and pelvis was reviewed which revealed mild splenomegaly. Order for hepatitis panel HIV screening, blood cultures, peripheral smears and of consult Hematology-Oncology was performed. Patient HIV screening and blood cultures negative. Pending peripheral smear. Patient's hepatitis panel did react to hepatitis C. Pending RNA reflux. Despite no active signs of infection the patient was placed on vancomycin and Zosyn empirically for possible infection. Patient did not appear to have any signs or symptoms of infection. Chlamydia and gonorrhea test was pending although patient does not have any acute symptoms. Hematology evaluated the patient and suggested that his lymphocyte percentage was slightly elevated in the mono screen is negative with a differential diagnosis of mild splenomegaly could include lympho peripheral ICT disorders, benign disorders like circ 0 does CIS, infection, autoimmune disease is liver and spleen disorders. The liver enzymes were normal. An additional workup for anemia was obtained. Which were WNL. Information to follow up with Hematology on discharge was given to the patient. Status at Discharge Cognitive/behavioral status at discharge: Alert and oriented x4 Time Spent with Patient Time attestation: Total time spent providing and/or coordinating discharge services: Exam Narrative: General: No acute distress. Mental Status: Awake, alert and oriented to person, place, and time with cl
[2021-08-16 08:00] VITALS: PULSE 54; RESP 18; O2SAT 100
[2021-08-18 12:56] LABS: Hepatitis C RNA, Quant PCR <15 IU/mL
== END 2021-08-16 12:55 | disposition home or self-care (01) ==
LOC: ANHED 21:11 → ANH3MEDSUR 23:47
PROVIDERS: Internal Medicine Hematology & Oncology; Admitting Provider Internal Medicine; Emergency Provider Emergency Medicine; PCP Emergency Medicine; Visit Provider Nurse Practitioner Family
DX: R16.1 Splenomegaly, not elsewhere classified (principal); R63.4 Abnormal weight loss; R82.2 Biliuria; K75.2 Nonspecific reactive hepatitis; F90.9 Attention-deficit hyperactivity disorder, unspecified type; F41.9 Anxiety disorder, unspecified; F17.210 Nicotine dependence, cigarettes, uncomplicated; F17.290 Nicotine dependence, other tobacco product, uncomplicated; F19.90 Other psychoactive substance use, unspecified, uncomplicated; F15.10 Other stimulant abuse, uncomplicated; F11.20 Opioid dependence, uncomplicated
CPT/HCPCS: 36415; 71250; 74176; 80048; 80053; 80074; 81001; 82607; 82728; 82746; 83540; 83550; 83615; 83735; 84100; 85025; 86308; 86703; 87040; 87491; 87522; 87591; 93306; 96365; 96366; 96367; 96368; 96375; 99285; A9270; G0378; G0379; G0432; J2543; J3370; J3411; J3475; J7121

== ENCOUNTER 2022-02-11 08:27 | Emergency (ER) | payer BC, SELFPAY ==
[2022-02-11] VITALS (9 sets, daily range): BP systolic 125–157; BP diastolic 68–91; PULSE 74–108; RESP 8–18; TEMP 36.5; O2SAT 92–99
--- NOTE | 2022-02-11 08:34 | ED.GENADULT ---
HPI - General Adult General Chief complaint: Overdose Stated complaint: fentanyl overdose History of Present Illness HPI narrative: 26-year-old male presented to the emergency department for evaluation of an intentional fentanyl overdose. Patient states he used to use fentanyl very regularly but states he has not used in the last 3 weeks. Patient states he did become upset today because he was kicked out of of his apartment. Patient states that this was not a suicide attempt. Patient denies any homicidal suicidal ideation. Related Data Home Medications Medication Instructions Recorded Confirmed No Home Medications 08/14/21 08/14/21 Allergies Allergy/AdvReac Type Severity Reaction Status Date / Time No Known Allergies Allergy Verified 02/11/22 08:41 Review of Systems Review of Systems: CONSTITUTIONAL: Denies fever, chills, or sweats. EYES: Denies visual changes, redness, or discharge. ENT: Denies rhinorrhea, congestion, sore throat, or otalgia. CARDIOVASCULAR: Denies chest pain, palpitations, or edema. RESPIRATORY: Denies cough or dyspnea. GASTROINTESTINAL: Denies abdominal pain, nausea, vomiting, or diarrhea. GENITOURINARY: Denies dysuria or hematuria. SKIN: Denies rash or itching. MUSCULOSKELETAL: Denies back pain, joint pain, or myalgia. NEUROLOGIC: Denies headache, numbness, or weakness. [facility] Past Medical History Medical History (Updated 02/11/22 @ 11:10 by Bhupinder Velasquez MD) ADHD Anxiety Surgical History Surgical History (Updated 08/15/21 @ 15:10 by Richard Claudio MD) History of lung surgery Family History Family History (Updated 08/14/21 @ 23:27 by Angelica Bowden RN) Grandparent Diabetes mellitus Blind Cerebrovascular accident Hx of heart surgery Father History of lung surgery Social History Social History Smoking packs per day: 0.5 Smoking cigarettes per day: 10.0 Years smoked: 10 Smoking pack-years: 5.00 Smoking status: Current every day smoker Tobacco type: cigarettes Alcohol intake: former Substance use: former Substance use type: marijuana Other substance usage details: pt states he dabbles in other stuff Gender identity (if verbalized by the patient): Male Spiritual care concerns: No Exam Narrative: APPEARANCE: Somnolent on arrival. HEAD: normocephalic, atraumatic. EYES: PERRLA/EOMI, conjunctivae clear. NOSE: Normal no drainage THROAT: Pharynx clear, no exudate. NECK: Supple. No adenopathy, no masses. RESPIRATORY: Airway patent, respirations nonlabored. Clear to auscultation bilaterally, no rales, rhonchi, wheezing. CARDIOVASCULAR: Regular rate and rhythm without murmurs rubs or gallops. ABDOMINAL: Soft, nontender, nondistended, normal bowel sounds MUSCULOSKELETAL: Moves all extremities. Strength/ROM intact, No edema, No calf tenderness. NEURO: Alert. Cranial nerves II through XII intact. Grossly intact SKIN: Warm, dry. Normal Color Course Course Emergency Course: Patient did not need Narcan on scene and patient was not hypoxic in the emergency department. Patient was observed for period in the ED and remained alert oriented and required no Narcan. Patient was advised to not use fentanyl. Patient was discharged to home. Vital Signs Vital signs: Vital Signs Temperature 97.7 F 02/11/22 08:34 Pulse Rate 108 H 02/11/22 08:34 Respiratory Rate 18 02/11/22 08:34 Blood Pressure 157/91 H 02/11/22 08:34 Pulse Oximetry 92 02/11/22 08:34 Oxygen Delivery Room Air 02/11/22 08:34 Temperature 97.7 F 02/11/22 08:34 Pulse Rate 74 02/11/22 11:34 Respiratory Rate 13 02/11/22 11:34 Blood Pressure 133/83 02/11/22 11:34 Pulse Oximetry 99 02/11/22 11:34 Oxygen Delivery Room Air 02/11/22 08:34 Medical Decision Making Vital Signs Vital Signs: Vital Signs Temperature 97.7 F 02/11/22 08:34 Pulse Rate 108 H 02/11/22 08:34 Respiratory R
== END 2022-02-11 11:35 | disposition home or self-care (01) ==
PROVIDERS: Emergency Provider Emergency Medicine; PCP Emergency Medicine
DX: T40.411A Poisoning by fentanyl or fentanyl analogs, accidental (unintentional), initial encounter (principal); F17.210 Nicotine dependence, cigarettes, uncomplicated
CPT/HCPCS: 99281